=== PATIENT | male | born 1970 | race Caucasian/White ===

== ENCOUNTER 2020-02-15 00:11 | Emergency (ER) | payer BC ==
[2020-02-15 00:19] VITALS: TEMP 97.5
[2020-02-15] MEDS ORDERED: MORPHINE SULFATE 4 MG/ML SYRINGE IVP STA (00:39)
[2020-02-15 00:56] LABS: Basophils # (A) 0.1 k/uL (0-0.2); Basophils % (A) 1 %; Eosinophils # (A) 0.4 k/uL (0-0.7); Eosinophils % (A) 4 %; HGB 14.8 gm/dL (13.0-17.5); Lymphocytes # (A) 4.1 k/uL (1.0-4.8); Lymphocytes % (A) 35 %; MCH 30.1 pg (25.0-35.0); MCHC 33.7 g/dL (31.0-37.0); MCV 89.5 fL (80.0-100.0); Mean Platelet Volume 8.5; Monocytes # (A) 0.8 k/uL (0-1.0); Monocytes % (A) 7 %; Neutrophils % (A) 52 %; Platelet Count 218 k/uL (150-450); RBC 4.92 m/uL (4.30-5.90); RDW 12.1 % (11.5-15.5); WBC 11.6 k/uL (3.8-10.6)
[2020-02-15 01:01] LABS: ALT 26 U/L (4-49); AST 21 U/L (17-59); African American GFR (CKD) >90 (>60 ml/min/1.73 sqM); Albumin 4.1 g/dL (3.5-5.0); Alkaline Phosphatase 74 U/L (38-126); Anion Gap 7 mmol/L; Blood Urea Nitrogen 24 mg/dL (9-20); Calcium 10.1 mg/dL (8.4-10.2); Carbon Dioxide 25 mmol/L (22-30); Chloride 105 mmol/L (98-107); Glucose 114 mg/dL (74-99); Non-African American GFR(CKD) >90 (>60 ml/min/1.73 sqM); Potassium 4.3 mmol/L (3.5-5.1); Sodium 137 mmol/L (137-145); Total Bilirubin 0.2 mg/dL (0.2-1.3); Total Protein 6.7 g/dL (6.3-8.2)
--- NOTE | 2020-02-15 01:07 | ED ---
ENT HPI - General Chief complaint: ENT Stated complaint: Right side facial pain, high BP Source: patient, family Mode of arrival: ambulatory Limitations: no limitations - History of Present Illness Initial comments: Tommy is a 49 yo M since the ER today for reevaluation of right ear pain rating to the right side of face. Patient was seen and evaluated at urgent care on Tuesday was diagnosed with otitis media, he was started on Augmentin and discharged home. Patient was also seen in the primary care office on Tuesday for reevaluation of hypertension and prescribed lisinopril. Patient reports he had been doing better however tonight the pain was worsening. Patient reports she went to sleep but woke up with severe stabbing pain in his right ear radiating throughout his face. He also noted that his blood pressure significantly elevated. Patient denies any associated fevers chills nausea vomiting chest pain palpitations shortness breath. - Related Data Previous Rx's Medication Instructions Recorded Fluticasone Nasal [place] [Flonase 2 spr EA NOSTRIL DAILY #1 bottle 02/15/20 Nasal [place]] Allergies Allergy/AdvReac Type Severity Reaction Status Date / Time No Known Allergies Allergy Verified 02/15/20 00:19 Review of Systems ROS Statement: Those systems with pertinent positive or pertinent negative responses have been documented in the HPI. ROS Other: All systems not noted in ROS Statement are negative. Past Medical History Past Medical History: Hypertension History of Any Multi-Drug Resistant Organisms: None Reported Past Surgical History: No Surgical Hx Reported Past Psychological History: No Psychological Hx Reported Smoking Status: Current every day smoker Past Alcohol Use History: Occasional Past Drug Use History: None Reported General Exam - General Exam Comments Initial Comments: Physical Exam GENERAL: Patient is well-developed and well-nourished. Patient is nontoxic and well-hydrated and is in no distress. HENT: Normocephalic, Atraumatic. No mastoid tenderness to palpation No edema around the right ear Right TM is erythematous with purulent discharge, no signs of perforation no signs of otitis externa EYES: PERRL, EOMI PULMONARY: Unlabored respirations. CARDIOVASCULAR: RRR Warm and well perfused extremities ABDOMEN: Non-distended SKIN: No rashes or bruising : Deferred NEUROLOGIC: Alert and oriented Normal speech Normal gait MUSCULOSKELETAL: Moving all extremities with no apparent injury PSYCHIATRIC: No SI/HI Limitations: no limitations Course Vital Signs 02/15/20 02/15/20 02/15/20 00:13 00:50 01:10 Temperature 97.5 F L Pulse Rate 64 69 66 Respiratory 18 18 16 Rate Blood Pressure 208/105 185/102 170/105 O2 Sat by Pulse 98 97 96 Oximetry 02/15/20 02/15/20 01:30 02:08 Temperature Pulse Rate 66 64 Respiratory 18 18 Rate Blood Pressure 170/105 148/100 O2 Sat by Pulse 95 98 Oximetry Medical Decision Making - Medical Decision Making The patient was seen and evaluated history is obtained from patient Labs, CT and analgesia were ordered Patient was reevaluated after pain medications reports significant improvement was found to be sleeping comfortably, CT scan with no signs of mastoiditis Labs no significant abnormalities. At this time patient's comfortable plan for discharge home and outpatient follow-up with ENT - Lab Data Result diagrams: 02/15/20 00:39 02/15/20 00:39 Lab Results 02/15/20 02/15/20 Range/Units 00:39 00:39 WBC 11.6 H (3.8-10.6) k/uL RBC 4.92 (4.30-5.90) m/uL Hgb 14.8 (13.0-17.5) gm/dL Hct 44.0 (39.0-53.0) % MCV 89.5 (80.0-100.0) fL MCH 30.1 (25.0-35.0) pg MCHC 33.7 (31.0-37.0) g/dL RDW 12.1 (11.5-15.5) % Plt Count 218 (150-450) k/uL Neutrophils % 52 % Lymphocytes % 35 % Monocytes % 7 % Eosinophils % 4 % Basophils % 1 % Neutrophils # 6.0 (1.3-7.7) k/uL Lymphocytes # 4.1 (1.0-4.8) k/uL Monocytes # 0.8 (0-1.0) k/uL Eosinophils # 0.4 (0-0.7) k/uL Basophils # 0.1 (0-0.2) k/uL Sodium 137 (137-145) mmol/L Potassium 4.3 (3.5-5.1) mmol/L Chloride 105 (98-107) mmol/L Carbon Dioxide 25 (22-30) mmol/L Anion Gap 7 mmol/L BUN 24 H (9-20) mg/dL Creatinine 0.84 (0.66-1.25) mg/dL Est GFR (CKD-EPI)AfAm >90 (>60 ml/min/1.73 sqM) Est GFR (CKD-EPI)NonAf >90 (>60 ml/min/1.73 sqM) Glucose 114 H (74-99) mg/dL Calcium 10.1 (8.4-10.2) mg/dL Total Bilirubin 0.2 (0.2-1.3) mg/dL AST 21 (17-59) U/L ALT 26 (4-49) U/L Alkaline Phosphatase 74 (38-126) U/L Total Protein 6.7 (6.3-8.2) g/dL Albumin 4.1 (3.5-5.0) g/dL Disposition Clinical Impression: Otitis media, Hypertension Disposition: HOME SELF-CARE Condition: Stable Instructions (If sedation given, give patient instructions): Ear Infection (ED) Prescriptions: Fluticasone Nasal [place] [Flonase Nasal [place]] 2 spr EA NOSTRIL DAILY #1 bottle Is patient prescribed a controlled substance at d/c from ED?: No Referrals: Joshua Torres MD [Primary Care Provider] - 1-2 days Don Rivas DO [Doctor of Osteopathic Medicine] - 1-2 days
--- NOTE | 2020-02-15 01:25 | CT ---
EXAMINATION TYPE: CT mastoid wo con DATE OF EXAM: 02/15/2020 COMPARISON: None HISTORY: right side ear pain CT DLP: 229.9 mGycm Automated exposure control for dose reduction was used. Multiple axial sections were obtained from the mid maxilla to the mid temporal bones without contrast . External auditory canals appear normal. There is fairly normal development and aeration of the mastoi d air cells. There is normal aeration of the epitympanic recess bilaterally. Ossicles appear normal. Cochlea and semicircular canals appear intact. There is extensive mucosal thickening in the maxillary and ethmoid sinuses. There is no evidence of o rbital mass.The visualized parotid glands are symmetric. IMPRESSION: Normal CT scan of the temporal bones and mastoid air cells. Moderate ethmoid and maxillary bilateral sinusitis.
[2020-02-15] MEDS ORDERED: ACET/COD 300 MG/30 MG STARTER PACK 6 TAB BTL PO STA (01:54)
[2020-02-15 01:59] VITALS: RESP 18
[2020-02-15 02:10] VITALS: BP 148/100; PULSE 64
== END 2020-02-15 02:08 | disposition home or self-care (01) ==
LOC: EC 00:11
DX: H66.91 Otitis media, unspecified, right ear (principal); I10 Essential (primary) hypertension; F17.200 Nicotine dependence, unspecified, uncomplicated
CPT/HCPCS: 36415; 80053; 85025; 70486; 99283; 96374; J2270

== ENCOUNTER → 2021-09-28 | Outpatient (CLI) | payer MEDICAID ==
[2021-09-28 23:32] LABS: Basophils # (A) 0.08 X 10*3/uL (0.00-0.10); Basophils % (A) 0.6 %; Eosinophils # (A) 0.28 X 10*3/uL (0.04-0.35); Eosinophils % (A) 2.2 %; HCT 41.4 % (39.6-50.0); HGB 13.5 g/dL (13.0-17.0); Lymphocytes # (A) 3.73 X 10*3/uL (0.90-5.00); MCH 30.2 pg (27.0-32.0); MCHC 32.6 g/dL (32.0-37.0); MCV 92.6 fL (80.0-97.0); Mean Platelet Volume 11.5 fL (9.5-12.2); Monocytes # (A) 0.97 X 10*3/uL (0.20-1.00); Monocytes % (A) 7.8 %; Neutrophils # (A) 7.35 X 10*3/uL (1.80-7.70); Neutrophils % (A) 59.1 %; Platelet Count 222 X 10*3/uL (140-440); RBC 4.47 X 10*6/uL (4.40-5.60); RDW 12.4 % (11.5-14.5); WBC 12.45 X 10*3/uL (4.50-10.00)
[2021-09-29 00:56] LABS: ALT 25 U/L (10-49); AST 17 U/L (14-35); African American GFR (CKD) 96.8 (60.0-200.0); Albumin 4.3 g/dL (3.8-4.9); Albumin/Globulin Ratio 2.12 (1.60-3.17); Alkaline Phosphatase 88 U/L (41-126); Blood Urea Nitrogen 20.5 mg/dL (9.0-27.0); Calcium 9.7 mg/dL (8.7-10.3); Carbon Dioxide 23.6 mmol/L (21.6-31.8); Chloride 105 mmol/L (96-109); Chol/HDL Ratio 3.03 Ratio; Glucose 98 mg/dL (70-110); LDL Cholesterol,Calculated 48.2 mg/dL (0.0-131.0); Non-African American GFR(CKD) 83.5 (60.0-200.0); Potassium 4.5 mmol/L (3.5-5.5); Sodium 138 mmol/L (135-145); Total Bilirubin <0.20 mg/dL (0.30-1.20); Total Protein 6.3 g/dL (6.2-8.2)
== END | disposition home or self-care (01) ==
LOC: LABWHC1 16:06
PROVIDERS: ATTEND Family Medicine
DX: Z00.00 Encounter for general adult medical examination without abnormal findings (principal)
CPT/HCPCS: 36415; 80053; 80061; 84153; 84439; 84443; 85025

== ENCOUNTER → 2023-05-30 | Outpatient (CLI) | payer MEDICAID ==
[2023-05-30 16:31] LABS: ALT 29 U/L (10-49); AST 16 U/L (14-35); Albumin 4.1 d/dL (3.8-4.9); Albumin/Globulin Ratio 2.05 Ratio (1.60-3.17); Alkaline Phosphatase 92 U/L (41-126); BUN/Creat Ratio 19.22 Ratio (12.00-20.00); Blood Urea Nitrogen 17.3 mg/dL (9.0-27.0); Calcium 9.5 mg/dL (8.7-10.3); Carbon Dioxide 24.2 mmol/L (21.6-31.8); Chloride 109 mmol/L (96-109); Chol/HDL Ratio 2.69 Ratio; Glucose 99 mg/dL (70-110); LDL Cholesterol,Calculated 54.6 mg/dL (0.0-131.0); Potassium 4.7 mmol/L (3.5-5.5); Sodium 142 mmol/L (135-145); T4, Free (Free Thyroxine) 1.45 ng/dL (0.80-1.80); Total Bilirubin <0.2 mg/dL (0.3-1.2); Total Protein 6.1 d/dL (6.2-8.2)
[2023-05-30 18:13] LABS: Basophils # (A) 0.07 X 10*3/uL (0.00-0.10); Basophils % (A) 0.7 %; Eosinophils # (A) 0.39 X 10*3/uL (0.04-0.35); Eosinophils % (A) 3.7 %; HCT 45.7 % (39.6-50.0); HGB 14.6 d/dL (12.0-15.0); Lymphocytes # (A) 3.14 X 10*3/uL (0.90-5.00); Lymphocytes % (A) 29.6 %; MCHC 31.9 d/dL (32.0-37.0); MCV 93.8 FL (80.0-97.0); Mean Platelet Volume 11.3 FL (9.5-12.2); Monocytes # (A) 0.78 X 10*3/uL (0.20-1.00); Monocytes % (A) 7.4 %; NRBC Per 100 WBC 0 X 10*3/uL (0.00-0.01); Neutrophils # (A) 6.19 X 10*3/uL (1.80-7.70); Neutrophils % (A) 58.2 %; Platelet Count 209 X 10*3/uL (140-440); RBC 4.87 X 10*6/uL (4.40-5.60); RDW 12.4 % (11.5-14.5); WBC 10.61 X 10*3/uL (4.50-10.00)
== END | disposition home or self-care (01) ==
LOC: LABWHC1 07:45
PROVIDERS: ATTEND Family Medicine
DX: Z00.00 Encounter for general adult medical examination without abnormal findings (principal); I10 Essential (primary) hypertension; F17.200 Nicotine dependence, unspecified, uncomplicated
CPT/HCPCS: 36415; 80053; 80061; 84153; 84439; 84443; 85025